=== PATIENT | male | born 2000 | race Caucasian/White ===

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

== ENCOUNTER 2020-01-01 14:49 | Emergency (ER) | payer OTHER, SELFPAY ==
[2020-01-01 15:37] VITALS: BP 118/56; PULSE 63; RESP 16; TEMP 37.2; O2SAT 99; BMI 26.4
--- NOTE | 2020-01-01 15:58 | HMH.EDUTC ---
[facility] [place] Disposition Clinical Impression: Allergic rhinitis Qualifiers: Allergic rhinitis trigger: unspecified Allergic rhinitis seasonality: seasonal Qualified Code(s): J30.2 - Other seasonal allergic rhinitis Disposition: Home, Self-Care Condition on Discharge: Good Instructions: DI for Allergic Rhinitis Additional Instructions: Drink plenty of fluids. Take tylenol or pain or fever. Take the medications as directed. Follow up with your regular doctor. GO TO THE ER FOR ANY WORSENING SYMPTOMS FOLLOW THE DIRECTIONS ON THE COVID-19 HAND OUT THAT WE GAVE YOU REGARDING SELF-ISOLATION UNTIL YOU KNOW YOUR COVID-19 RESULTS Prescriptions: Fluticasone Propionate [Flonase 50mcg nasal spray 16gm] 1 spr NS BID 30 Days #1 bottle Transmission Status: Received by [facility] Cetirizine HCl [Zyrtec] 10 mg PO DAILY 30 Days #30 cap Transmission Status: Re[facility] Referrals: PCP,No [Primary Care Provider] - Forms: Work/School Release Time of Disposition: 16:17 Medical Decision Making - Medical Records Medical records reviewed: No: I reviewed the patient's medical records. - Sander Inquiry Pt receiving controlled substance: No Vital Signs: 01/01/20 15:37 01/01/20 16:32 Temperature 98.9 F 98.9 F Temperature Source Oral Oral Pulse Rate 63 Pulse Rate [Radial] 63 Respiratory Rate 16 16 Blood Pressure 118/56 L Blood Pressure [Right Arm] 118/56 L Blood Pressure Mean [Right Arm] 76 Blood Pressure Source Automatic Cuff Blood Pressure Source [Right Arm] Automatic Cuff Blood Pressure Position Sitting Blood Pressure Position [Right Arm] Sitting 02 Sat by Pulse Oximetry 99 Oxygen Delivery Method Room Air Room Air - Lab Data Lab Results 01/01/20 15:56: Chlamy pneumoniae PCR Not detected, Adenovirus (PCR) Not detected, B. pertussis DNA (PCR) Not detected, Coronavirus OC43 (PCR) Not detected, Coronavirus HKU1 (PCR) Not detected, Coronavirus 229E (PCR) Not detected, SARS-CoV-2 (PCR) Not detected, Coronavirus NL63 (PCR) Not detected, Human Metapneumovir PCR Not detected, Influenza A (H1) PCR Not detected, Influ A (H1N1/09) PCR Not detected, Influenza A (H3) PCR Not detected, Influenza Type A (PCR) Not detected, Influenza Type B (PCR) Not detected, M. pneumoniae (PCR) Not detected, Parainfluenza 1 (PCR) Not detected, Parainfluenza 2 (PCR) Not detected, Parainfluenza 3 (PCR) Not detected, Parainfluenza 4 (PCR) Not detected, RSV (PCR) Not detected, Entero/Rhino (PCR) Detected A [facility] [place] HPI - General Stated complaint: Runny nose Time Seen by Provider: 01/01/20 15:58 Mode of Arrival: Ambulatory Source of Information: Patient Limitations: No Limitations Description of Symptoms (Recalled from Triage Doc. by RN): covid test HEENT Symptoms (Recalled from RN notes): Yes Resp Symptoms (Recalled from RN notes): No Skin Symptoms (Recalled from RN notes): No MS Symptoms (Recalled from RN notes): No Functional Status (Recalled from RN notes): wnl - History of Present Illness Provider Complaint: He states that he has had a runny nose for the past 4 days. 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 - Related Data Home Medications Medication Instructions Recorded Confirmed Albuterol Sulfate [Albuterol HFA 1 - 2 puffs IH Q4-6H PRN 07/15/18 07/15/18 Inhaler] Loratadine [Claritin 10mg 10 mg PO DAILY 07/15/18 07/15/18 Tablet] Previous Rx's Medication Instructions Recorded Ibuprofen [Ibuprofen 600mg 600 mg PO Q6HP PRN #30 tab 07/15/18 Tablet] Cetirizine HCl [Zyrtec] 10 mg PO DAILY 30 Days #30 cap 01/01/20 Fluticasone Propionate [Flonase 1 spr NS BID 30 Days #1 bottle 01/01/20 50mcg nasal spray 16gm] Allergies Allergy/AdvReac Type Severity Reaction Status Date / Time GRAPE FLAVORING Allergy Uncoded 07/15/18 15:41 PURPLE FOOD COLOR Allergy Uncoded 07/15/18 15:41 - Worker's Comp Is thi
[2020-01-01 16:32] VITALS: BP 118/56; PULSE 63; RESP 16; TEMP 37.2; O2SAT 99
[2020-01-02 03:18] LABS: Adenovirus,PCR Not Detected (NotDetected); Bordetella Pertussis Not Detected (NotDetected); Chlamydophila Pneumoniae, PCR Not Detected (NotDetected); Coronavirus 19, PCR Not Detected (NotDetected); Coronavirus 229E Not Detected (NotDetected); Coronavirus NL63 Not Detected (NotDetected); Coronavirus OC43 Not Detected (NotDetected); Coronovirus HKU1,PCR Not Detected (NotDetected); Human Metapneumovirus Not Detected (NotDetected); Influenza A, PCR Not Detected (NotDetected); Influenza AH1, 2009 Not Detected (NotDetected); Influenza AH1, PCR Not Detected (NotDetected); Influenza AH3,PCR Not Detected (NotDetected); Influenza B, PCR Not Detected (NotDetected); Mycoplasma Pneumoniae, PCR Not Detected (NotDetected); Parainfluenza 1, PCR Not Detected (NotDetected); Parainfluenza 2, PCR Not Detected (NotDetected); Parainfluenza 3, PCR Not Detected (NotDetected); Parainfluenza 4, PCR Not Detected (NotDetected); Respiratory Syncytial Virus Not Detected (NotDetected)
[2020-01-02 06:45] LABS: Rhinovirus/Enterovirus Detected (NotDetected)
== END 2020-01-01 16:35 | disposition home or self-care (01) ==
PROVIDERS: Emergency Provider Nurse Practitioner Family
DX: Z20.828 Contact with and (suspected) exposure to other viral communicable diseases (principal); J30.2 Other seasonal allergic rhinitis; F17.210 Nicotine dependence, cigarettes, uncomplicated
CPT/HCPCS: 87581; 87633; 87798; 99201; U0003; U0004

== ENCOUNTER 2020-03-16 13:18 | Emergency (ER) | payer OTHER, SELFPAY ==
[2020-03-16 14:10] VITALS: BP 117/85; PULSE 60; RESP 20; TEMP 37; O2SAT 98; BMI 24.3
--- NOTE | 2020-03-16 14:19 | HMH.EDUTC ---
[facility] [place] Clinical Impression: Exposure to COVID-19 virus Disposition: Home, Self-Care Condition on Discharge: Good Instructions: Preventing the Spread of Coronavirus Discharge Instructions Additional Instructions: Drink plenty of fluids. Take tylenol for pain or fever. Follow up with your regular doctor. GO TO THE ER FOR ANY WORSENING SYMPTOMS Referrals: PCP,No [Primary Care Provider] - Forms: Work/School Release Time of Disposition: 14:36 Medical Decision Making - Medical Records Medical records reviewed: No: I reviewed the patient's medical records. - Sander Inquiry Pt receiving controlled substance: No Vital Signs: 03/16/20 14:10 03/16/20 14:24 Temperature 98.6 F 98.6 F Temperature Source Oral Pulse Rate 60 Pulse Rate [Right Brachial] 60 Respiratory Rate 20 20 Blood Pressure 117/85 Blood Pressure [Right Arm] 117/85 Blood Pressure Mean [Right Arm] 95 Blood Pressure Source [Right Arm] Automatic Cuff Blood Pressure Position [Right Arm] Sitting 02 Sat by Pulse Oximetry 98 Oxygen Delivery Method Room Air Orders (Tests/Meds): ORDERS Category Date Time Status Covid-19 Nasal PCR ([facility]) Routine Lab 03/16/20 14:20 Received [facility] [place] HPI - General Stated complaint: covid exposure Time Seen by Provider: 03/16/20 14:19 - History of Present Illness Provider Complaint: He states that his has covid-19. He denies any symptoms so far. - Related Data Home Medications Medication Instructions Recorded Confirmed Albuterol Sulfate [Albuterol HFA 1 - 2 puffs IH Q4-6H PRN 07/15/18 07/15/18 Inhaler] Loratadine [Claritin 10mg 10 mg PO DAILY 07/15/18 07/15/18 Tablet] Previous Rx's Medication Instructions Recorded Ibuprofen [Ibuprofen 600mg 600 mg PO Q6HP PRN #30 tab 07/15/18 Tablet] Cetirizine HCl [Zyrtec] 10 mg PO DAILY 30 Days #30 cap 01/01/20 Fluticasone Propionate [Flonase 1 spr NS BID 30 Days #1 bottle 01/01/20 50mcg nasal spray 16gm] Allergies Allergy/AdvReac Type Severity Reaction Status Date / Time GRAPE FLAVORING Allergy Uncoded 07/15/18 15:41 PURPLE FOOD COLOR Allergy Uncoded 07/15/18 15:41 [facility] History - Hepatitis A Screen Attestation statement:: This patient has been screened for Hepatitis A risk factors. I have reviewed the patient's past medical history: Yes Medical History: Denies:: Diabetes Mellitus Type 1, Diabetes Mellitus Type 2, MRSA Amputation: No Fractures: Yes (HANDS) - Social History Smoking Status: Current every day smoker Tobacco Type: cigarettes # Packs/Day (cigarettes): 1 Alcohol Intake: never Occupational Status: employed Housing: house ROS Obtained: Yes All systems reviewed & no additional complaints - Constitutional Constitutional: Reports system reviewed and no additional complaints, except as docu - Eyes Eyes: Reports system reviewed and no additional complaints, except as docu - ENT Ears, Nose, Mouth, and Throat: Reports system reviewed and no additional complaints, except as docu - Cardiovascular Cardiovascular: Reports system reviewed and no additional complaints, except as docu - Respiratory Respiratory: Yes system reviewed and no additional complaints, except as docu - Gastrointestinal Gastrointestingal: Reports: system reviewed and no additional complaints, except as docu Physical Exam - General General appearance: alert, in no apparent distress - Head Head exam: atraumatic, normocephalic, normal inspection - Eye Eye exam: Present: normal appearance, PERRL, EOMI - ENT ENT exam: Present: normal exam, normal oropharynx, mucous membranes moist, TM's normal bilaterally, normal external ear exam - Neck Neck exam: Present: normal inspection, full ROM, trachea midline. Absent: meningismus, lymphadenopathy - Chest Chest inspection: Present: normal inspection, symmetric chest wall rise. Absent: tenderness - Respiratory Respiratory exam: Pr
[2020-03-16 14:24] VITALS: BP 117/85; PULSE 60; RESP 20; TEMP 37; O2SAT 98
== END 2020-03-16 14:32 | disposition home or self-care (01) ==
PROVIDERS: Emergency Provider Nurse Practitioner Family
DX: Z20.822 Contact with and (suspected) exposure to COVID-19 (principal); F17.210 Nicotine dependence, cigarettes, uncomplicated
CPT/HCPCS: 99202; G0463; U0003

== ENCOUNTER 2021-06-12 10:35 | Emergency (ER) | payer SELFPAY ==
[2021-06-12 10:36] VITALS: BP 114/65; BP 130/88; BP 131/78; PULSE 52; RESP 18; TEMP 36.9; O2SAT 97; BMI 24.3
--- NOTE | 2021-06-12 13:13 | HMH.EDUTC ---
[facility] [place] [facility] [place] Clinical Impression: Pilonidal cyst Syncopal episodes Qualifiers: Syncope type: unspecified Qualified Code(s): R55 - Syncope and collapse Disposition: Still a Patient Condition on Discharge: Fair Referrals: Provider,Referral, [Primary Care Provider] - Time of Disposition: 14:00 Medical Decision Making - Medical Records Medical records reviewed: No: I reviewed the patient's medical records. - Sander Inquiry Pt receiving controlled substance: No Vital Signs: 06/12/21 10:36 Temperature 98.4 F Temperature Source Oral Pulse Rate [Right Radial] 52 L Respiratory Rate 18 Blood Pressure [Right Arm] 131/78 Blood Pressure [Right Femoral Artery] 114/65 Blood Pressure [Right Radial Artery] 130/88 Blood Pressure Mean [Right Arm] 95 Blood Pressure Mean [Right Femoral Artery] 81 Blood Pressure Mean [Right Radial Artery] 102 Blood Pressure Source [Right Arm] Automatic Cuff Blood Pressure Source [Right Femoral Artery] Automatic Cuff Blood Pressure Source [Right Radial Artery] Automatic Cuff Blood Pressure Position [Right Arm] Sitting Blood Pressure Position [Right Femoral Artery] Supine Blood Pressure Position [Right Radial Artery] Standing 02 Sat by Pulse Oximetry 97 Oxygen Delivery Method Room Air Medical Decision Narrative: he was transferred to the ER due to the history of the syncopal episode and per his family request. [facility] [place] [facility] [place] - General Stated complaint: boil on back, fainted 06/11 Time Seen by Provider: 06/12/21 13:13 - History of Present Illness Provider Complaint: He states that he fainted last night. He is unsure how long he was out. He denies any history of similar episodes. He is worried that he has a brain tumor or a cardiac dysrhythmia. He also has a cyst on his pilnoidal area that has been there for the past 6 months. He states that when he passed out a family member was in the process of cleaning this. - Related Data Home Medications Medication Instructions Recorded Confirmed Albuterol Sulfate [Albuterol HFA 1 - 2 puffs IH Q4-6H PRN 07/15/18 07/15/18 Inhaler] Loratadine [Claritin 10mg 10 mg PO DAILY 07/15/18 07/15/18 Tablet] Previous Rx's Medication Instructions Recorded Ibuprofen [Ibuprofen 600mg 600 mg PO Q6HP PRN #30 tab 07/15/18 Tablet] Cetirizine HCl [Zyrtec] 10 mg PO DAILY 30 Days #30 cap 01/01/20 Fluticasone Propionate [Flonase 1 spr NS BID 30 Days #1 bottle 01/01/20 50mcg nasal spray 16gm] Allergies Allergy/AdvReac Type Severity Reaction Status Date / Time GRAPE FLAVORING Allergy Mild Uncoded 06/12/21 13:29 PURPLE FOOD COLOR Allergy Uncoded 07/15/18 15:41 [facility] History - Hepatitis A Screen Attestation statement:: This patient has been screened for Hepatitis A risk factors. I have reviewed the patient's past medical history: Yes Medical History: Denies:: Diabetes Mellitus Type 1, Diabetes Mellitus Type 2, MRSA Amputation: No Fractures: Yes (HANDS) - Social History Smoking Status: Current every day smoker Tobacco Type: cigarettes # Packs/Day (cigarettes): 1 Alcohol Intake: never Occupational Status: other Housing: house ROS Obtained: Yes All systems reviewed & no additional complaints - Constitutional Constitutional: Denies chills, Denies fever(s) - Eyes Eyes: Denies eye discharge - ENT Ears, Nose, Mouth, and Throat: Denies dizziness, Denies otalgia, Denies sore throat - Cardiovascular Cardiovascular: Denies chest pain - Respiratory Respiratory: Denies chest congestion, Denies cough - Gastrointestinal Gastrointestingal: Denies: abdominal pain, diarrhea, nausea, vomiting - Musculoskeletal Musculoskeletal: Denies joint pain - Integumentary/Breasts Skin/Breast: Reports as per HPI - Neurologic Neurologic: Reports syncope Physical Exam - General General appearance: alert, in no apparent distress - Head Head exam: atraumatic, normocephalic, normal inspection - Eye Eye ex
[2021-06-12 13:36] VITALS: BP 134/84; PULSE 51; RESP 18; TEMP 36.6; O2SAT 96; BMI 24.3
--- NOTE | 2021-06-12 14:04 | ECG_ITS ---
APPROVED REPORT Exam: Resting ECG HR:44 bpm ECG Measurements Heart Rate 44 AXES ND 158 P 63 QRSd 98 QRS 81 QT 419 T 60 QTc 370 Conclusion SINUS BRADYCARDIA BORDERLINE ECG UNCONFIRMED REPORT Electronically signed by : Lalo Worrell MD 06/14/2021 08:17:21
--- NOTE | 2021-06-12 14:11 | PC.NURSE ---
ED MD at
[2021-06-12 15:10] LABS: Basophils % 0.6 % (0.1-2.0); Eosinophils # 0.1 K/mm3 (0.0-0.4); Eosinophils % 0.9 % (0.1-12.0); Hematocrit 47.3 % (42.0-52.0); Hemoglobin 15.4 g/dL (14.1-18.0); Lymphocytes # 1.9 K/mm3 (0.7-4.5); Lymphocytes % 25.8 % (10-50); Mean Corpuscular HGB Conc 32.6 g/dL (31.8-35.4); Mean Corpuscular Hemoglobin 29.3 pg (27.0-31.2); Mean Corpuscular Volume 89.8 fl (80-94); Mean Platelet Volume 8.5 fl (7.4-10.4); Monocytes # 0.4 K/mm3 (0.1-1.0); Monocytes % 6.2 % (1.7-9.3); Neutrophils # 4.8 K/mm3 (1.8-7.8); Neutrophils % 66.6 % (37.0-80.0); Platelet Count 204 K/mm3 (142-424); Red Blood Count 5.27 M/mm3 (4.60-6.20); Red Cell Distribution Width 13.2 % (11.5-17.5); White Blood Count 7.2 K/mm3 (4.8-10.8)
[2021-06-12 15:11] LABS: Chloride 107 mmol/L (98-107); Potassium 3.7 mmoL/L (3.5-5.1); Sodium 140 mmol/L (136-145)
[2021-06-12 15:14] LABS: Alanine Aminotransferase 15 U/L (12-78); Albumin Level 4.4 g/dl (3.5-5.0); Albumin/Globulin Ratio 1.8 (1.1-1.8); Alkaline Phosphatase 61 U/L (38-126); Anion Gap 11.7 mEq/L (5-15); Aspartate Amino Transferase 23 U/L (17-59); Bilirubin,Total 0.9 mg/dl (0.2-1.3); Blood Urea Nitrogen 16 mg/dl (9-20); Calcium 8.4 mg/dl (8.4-10.2); Carbon Dioxide 25 mmol/L (22.0-30.0); Creatinine Clearance Estimated 159 mL/min (50-200); Estimated Glomerular Filt Rate 122 ml/min (>60); GFR (African American) 148 ML/MIN (>60); Globulin 2.5 g/dL (1.3-3.2); Glucose 93 mg/dl (74-100); Total Protein,Serum 6.9 g/dl (6.3-8.2)
[2021-06-12 15:41] VITALS: BP 122/83; BP 141/84; BP 147/88; PULSE 46; PULSE 55; PULSE 65
--- NOTE | 2021-06-12 15:49 | HMH.EDSYNC ---
ED Disposition Clinical Impression: Pilonidal cyst Syncopal episodes Qualifiers: Syncope type: unspecified Qualified Code(s): R55 - Syncope and collapse Disposition: Still a Patient Condition on Discharge: Good Referrals: Provider,Referral, [Primary Care Provider] - - Critical Care Critical Care Time: No Attestation: On 06/12/21, the high probability of a clinically significant, sudden or life threatening deterioration of the following system(s) required my full and direct attention, intervention and personal management. The time I documented below is in addition to time spent performing reported procedures but includes the following listed in this critical care notation. Medical Decision Making - Medical Records Medical records reviewed: Yes: I reviewed the patient's medical records. - Sander Inquiry Pt receiving controlled substance: No Vital Signs: 06/12/21 10:36 06/12/21 15:41 Temperature 98.4 F Temperature Source Oral Pulse Rate [Orthostatic Lying Right Radial] 55 L Pulse Rate [Orthostatic Sitting Right Radial] 46 L Pulse Rate [Orthostatic Standing Right Radial] 65 Pulse Rate [Right Radial] 52 L Respiratory Rate 18 Blood Pressure [Orthostatic Lying Right Arm] 122/83 Blood Pressure [Orthostatic Sitting Right Arm] 141/84 H Blood Pressure [Orthostatic Standing Right Arm] 147/88 H Blood Pressure [Right Arm] 131/78 Blood Pressure [Right Femoral Artery] 114/65 Blood Pressure [Right Radial Artery] 130/88 Blood Pressure Mean [Right Arm] 95 Blood Pressure Mean [Right Femoral Artery] 81 Blood Pressure Mean [Right Radial Artery] 102 Blood Pressure Source [Right Arm] Automatic Cuff Blood Pressure Source [Right Femoral Artery] Automatic Cuff Blood Pressure Source [Right Radial Artery] Automatic Cuff Blood Pressure Position [Right Arm] Sitting Blood Pressure Position [Right Femoral Artery] Supine Blood Pressure Position [Right Radial Artery] Standing 02 Sat by Pulse Oximetry 97 Oxygen Delivery Method Room Air - Lab Data Lab Results 06/12/21 14:30: WBC 7.2, RBC 5.27, Hgb 15.4, Hct 47.3, MCV 89.8, MCH 29.3, MCHC 32.6, RDW 13.2, Plt Count 204, MPV 8.5, Neut % (Auto) 66.6, Lymph % (Auto) 25.8, Nye % (Auto) 6.2, Eos % (Auto) 0.9, Baso % (Auto) 0.6, Neut # (Auto) 4.8, Lymph # (Auto) 1.9, Nye # (Auto) 0.4, Eos # (Auto) 0.1, Baso # (Auto) 0.0 06/12/21 14:30: Sodium 140, Potassium 3.7, Chloride 107, Carbon Dioxide 25, Anion Gap 11.7, BUN 16, Creatinine 0.80, Estimated Creat Clear 159, Estimated GFR 122, Est GFR ( Amer) 148, Glucose 93, Calcium 8.4, Total Bilirubin 0.9, AST 23, ALT 15, Alkaline Phosphatase 61, Total Protein 6.9, Albumin 4.4, Globulin 2.5, Albumin/Globulin Ratio 1.8 Result diagrams: 06/12/21 14:30 06/12/21 14:30 Medical Decision Narrative: ekg by me sinus gema 44, qrs narrow, no st elev orthostatic vitals nml, asymptomatic Syncope HPI - General Stated Complaint: boil on back, fainted 06/11 Time Seen by Provider: 06/12/21 14:00 Mode of Arrival: Ambulatory Source of Information: Patient Limitations: No Limitations Description of Symptoms (Recalled from ER Triage Doc. by RN): Pt stated that last night he past out for 5 minutes. Pt states that he has a cyst on back and it has popped. While cleaning it he passed out and hit head on person cleaning cyst's knee when he passed out and was shaking. - History of Present Illness HPI narrative: brief syncope yesterday, resolved, no preceeeding symptoms, no head ijury today feels fine complaint: loss of consciousness Onset (ago): minute(s) Prodromal symptoms: none Witnessed: yes - by bystander Injuries sustained associated with event: none Current symptoms: none Treatments prior to arrival: none - Related Data Home Medications Medication Instructions Recorded Confirmed Albuterol Sulfate [Albuterol HFA 1 - 2 puffs IH Q4-6H PRN 07/15/18 07/15/18 Inhaler] Loratadine [Claritin 10mg 10 m
[2021-06-12 16:01] VITALS: BP 147/88; PULSE 58; RESP 16; TEMP 36.6; O2SAT 96
== END 2021-06-12 16:02 | disposition home or self-care (01) ==
LOC: UTC 14:00 → ER 14:02
PROVIDERS: Emergency Provider Emergency Medicine
DX: R55 Syncope and collapse (principal); L05.91 Pilonidal cyst without abscess; F17.210 Nicotine dependence, cigarettes, uncomplicated
CPT/HCPCS: 80053; 85025; 93005; 99283

== ENCOUNTER → 2022-05-13 14:25 | Outpatient (CLI) | payer OTHER, SELFPAY ==
[2022-05-13 15:27] LABS: Basophils # 0.1 K/mm3 (0-0.2); Basophils % 1.2 % (0.1-2.0); Eosinophils # 0.1 K/mm3 (0.0-0.4); Eosinophils % 2.2 % (0.1-12.0); Hematocrit 51.6 % (42.0-52.0); Hemoglobin 16.3 g/dL (14.1-18.0); Lymphocytes # 2.2 K/mm3 (0.7-4.5); Lymphocytes % 36.7 % (10-50); Mean Corpuscular HGB Conc 31.5 g/dL (31.8-35.4); Mean Corpuscular Hemoglobin 28.5 pg (27.0-31.2); Mean Corpuscular Volume 90.2 fl (80-94); Mean Platelet Volume 8.2 fl (7.4-10.4); Monocytes # 0.4 K/mm3 (0.1-1.0); Monocytes % 6.2 % (1.7-9.3); Neutrophils # 3.2 K/mm3 (1.8-7.8); Neutrophils % 53.7 % (37.0-80.0); Platelet Count 258 K/mm3 (142-424); Red Blood Count 5.72 M/mm3 (4.60-6.20); Red Cell Distribution Width 13.3 % (11.5-17.5); White Blood Count 5.9 K/mm3 (4.8-10.8)
[2022-05-13 16:52] LABS: Anion Gap 11.4 mEq/L (5-15); Blood Urea Nitrogen 14 mg/dl (9-20); Calcium 9.2 mg/dl (8.4-10.2); Carbon Dioxide 30 mmol/L (22.0-30.0); Chloride 101 mmol/L (98-107); Estimated Glomerular Filt Rate 121 ml/min (>60); GFR (African American) 146 ML/MIN (>60); Glucose 108 mg/dl (74-100); Potassium 4.4 mmoL/L (3.5-5.1); Sodium 138 mmol/L (136-145)
== END ==
PROVIDERS: PCP Internal Medicine Adolescent Medicine; Visit Provider Surgery
DX: L05.91 Pilonidal cyst without abscess (principal)
CPT/HCPCS: 36415; 80048; 85025

== ENCOUNTER 2022-05-18 09:32 | Day surgery (SDC) | payer OTHER, SELFPAY ==
[2022-05-18] VITALS (10 sets, daily range): BP systolic 105–154; BP diastolic 51–90; PULSE 72–89; RESP 12–20; TEMP 36.2–43; O2SAT 93–99; BMI 25.1
--- NOTE | 2022-05-18 10:56 | P.PN_ITS ---
[facility] Disclaimer: The information contained in this section may have been updated after the patient was seen, as this information can be updated by other users. Medical History Allergies Asthma Bradycardia Bronchitis Depression with anxiety Fainting episodes Heart murmur History of gastroesophageal reflux (GERD) Insomnia Migraine Surgical History No significant past surgical history Family History Mother Colon cancer Simon syndrome Father Hyperlipidemia Pre-diabetes Hypertension Other Cancer Social History Smoking Status: Current every day smoker tobacco type: cigarettes packs per day: 1 years smoked: 6 second hand exposure: Yes alcohol intake: never substance use type: marijuana current occupational status: unemployed Travel in the last 8 weeks: None household members: spouse housing: apartment current occupational exposures/hazards: No caffeine: Yes [facility] Anesthesia Checklist Patient Identification Patient Identification: Arm Band and Verbal (Name & ) Structural Data Admitted From: Home Planned Operative Procedure/s: Pilonidal cyst excision Consent for Planned Operative Procedure(s) Verified: Yes NPO Status Verified Time NPO: 00:00 Additional verifications Anesthesia Reactions: No Hx Blood Transfusions: No Blood Transfusion Reaction: No Airway Assessment C-Spine Mobility Assessed: Yes TMJ Mobility Assessed: Yes Dentition: Poor Dentition Neurological Assessment Level of Consciousness: Awake Hx Seizures: No Numbness or tingling in extremities: No Anesthesia Plan Anesthesia Risk discussed: Yes Anesthesia Plan: Verified ASA Class: II Anesthesia Type: General
--- NOTE | 2022-05-18 11:55 | EXP.OP.NOTE ---
Date of procedure: 05/18/22 Pre-op Diagnosis:: Pilonidal cyst Post-op Diagnosis:: Same Procedure performed:: Excision of pilonidal cyst with debridement Surgeon:: Feng Yusuf MD SENIOR TRAINING [employer] DEVELOPMENT REP:: Korey Briceno Anesthesia: GETGricelda Estimated blood loss (mL): 25 Clinical Note:: Patient presents for excision and debridement of pilonidal cyst. He is a 22-year-old male originally referred by Jade Larry for pilonidal cyst and seen in the office 10/09/21.? He states that he had noticed this as an issue in January 2021.? However, it was relatively asymptomatic until May of 2021.? At that time he had some spontaneous drainage.? He states that when this occurred he had passed out for 5 minutes and was seen in the emergency department at this facility.? He has had some additional episodes.? Has occasionally spontaneously drained some bloody fluid.? He has never had any intervention performed on the area. At that time I explained to the patient that there is no definitive surgical cure for this condition.? Given the inflammation with intermittent drainage I did feel that surgical intervention may be necessary and indicated.?? I felt that it may be reasonable to proceed with excision and debridement of this inflamed tissue in the operating room with inspection of underlying tissues.? He may actually have a communicating tract requiring more extensive opening and debridement of tissues and initiation of dressing changes.? Patient was scheduled for surgery but had to cancel.? He recently presented to the office with ongoing problems.? He states that he has some drainage and has been keeping a dressing in place.? He states that he has passed out from the pain. Patient was found to have an area of scar tissue and granulation tissue with some minimal purulent drainage in the post coccygeal area. He had some pilonidal sinus openings several inches inferiorly. Operative findings:: There was some minimal purulent granulation tissue at the site where he had spontaneous drainage. However, there was tract of purulent granulation tissue and debris down to the area of the pilonidal openings. Overall length of the disease process was 9 cm. Operative note:: Patient was taken the operating room. General anesthesia was induced. He was positioned in prone position. The small area of scar tissue and minimal granulation tissue was excised in a limited fashion. There is some underlying granulation tissue which was excised with electrocautery. Initially was felt that the wound was rather minimal which seemed unlikely given the pilonidal sinus tract openings several inches inferiorly. Palpation of the skin between the 2 areas was then performed and there was purulent drainage coming from inferiorly. Probe was then inserted and there was clearly defined inflamed granulation tract. This was slowly unroofed exposing purulent granulation tissue and debris consistent with pilonidal cyst. Once the inflamed tissue of the pilonidal cyst was fully unroofed debridement was carried out using a small curette. Hemostasis was achieved with electrocautery. Wound was irrigated. Local anesthetic was infiltrated. Wound was packed with dry dressing and covered with clean dry sterile dressing. Overall length of the wound was approximately 9 cm x 1 cm in width. Condition: stable Disposition: PACU Complications:: None immediately apparent
--- NOTE | 2022-05-18 12:03 | EXP.ANES.I ---
[facility] Anesthesia Record Part I Anesthesia Record I Intake, IV Amount: 900 Estimated blood loss (mL): 5 Urine output (mL): 0 Blood Pressure: 145/86 SaO2: 93 Pulse Rate: 84 Respiratory Rate: 20 Temperature: 97.1 F Patient is:: Drowsy and Oral/Nasal airway Stable to PACU at:: 12:01
--- NOTE | 2022-05-22 16:13 | P.PNANES_ITS ---
[facility] Anesthesia Record Part II Anesthesia Record Part II Discharge Time: 12:31 Destination: Surgical Day Care (OP Surgery) PACU nurse assessment reviewed?: Yes Patient Condition:: Good Anesthesia Complications:: None Swallowing reflex intact?: Yes Cyanosis?: No Blood Pressure: 144/64 Pulse Rate: 85 Temperature: 98.1 F Mental Status: Alert & Oriented Pain level:: 0 Nausea and/or vomitting:: None Intake, IV Amount: 0
[2022-05-22 16:14] VITALS: BP 144/64; PULSE 85; TEMP 36.7
== END 2022-05-18 13:10 | disposition home or self-care (01) ==
PROVIDERS: PCP Internal Medicine Adolescent Medicine; Visit Provider Surgery
PROC: (CPT 11771; principal; 2022-05-18 11:00)
DX: L05.01 Pilonidal cyst with abscess (principal); F17.210 Nicotine dependence, cigarettes, uncomplicated
CPT/HCPCS: 11771; 96374

== ENCOUNTER 2022-05-19 10:40 | Outpatient (CLI) | payer OTHER, SELFPAY | END 2022-05-19 11:05 | disposition home or self-care (01) | LOC: INF 10:41 | PROVIDERS: PCP Internal Medicine Adolescent Medicine; Visit Provider Surgery | DX: Z48.01 Encounter for change or removal of surgical wound dressing (principal); L05.01 Pilonidal cyst with abscess | CPT/HCPCS: G0463 ==

== ENCOUNTER 2022-05-21 14:03 | Outpatient (CLI) | payer OTHER, SELFPAY | END 2022-05-21 14:10 | disposition home or self-care (01) | PROVIDERS: PCP Internal Medicine Adolescent Medicine; Visit Provider Surgery | DX: Z48.01 Encounter for change or removal of surgical wound dressing (principal); L05.01 Pilonidal cyst with abscess | CPT/HCPCS: G0463 ==

== ENCOUNTER 2022-05-22 14:05 | Outpatient (CLI) | payer OTHER, SELFPAY | END 2022-05-22 14:20 | disposition home or self-care (01) | LOC: INF 14:05 | PROVIDERS: PCP Internal Medicine Adolescent Medicine; Visit Provider Surgery | DX: Z48.01 Encounter for change or removal of surgical wound dressing (principal); L05.01 Pilonidal cyst with abscess | CPT/HCPCS: G0463 ==

== ENCOUNTER 2022-05-24 14:53 | Outpatient (CLI) | payer OTHER, SELFPAY ==
[2022-05-24 14:55] VITALS: BP 136/68; PULSE 69; RESP 18; O2SAT 95
[2022-05-24 15:03] VITALS: BP 141/96; PULSE 68; RESP 18; O2SAT 98
== END 2022-05-24 15:03 | disposition home or self-care (01) ==
LOC: INF 14:53
PROVIDERS: PCP Internal Medicine Adolescent Medicine; Visit Provider Surgery
DX: Z48.01 Encounter for change or removal of surgical wound dressing (principal); L05.01 Pilonidal cyst with abscess
CPT/HCPCS: G0463

== ENCOUNTER 2022-05-26 13:56 | Outpatient (CLI) | payer OTHER, SELFPAY | END 2022-05-26 14:46 | disposition home or self-care (01) | LOC: INF 13:56 | PROVIDERS: PCP Internal Medicine Adolescent Medicine; Visit Provider Surgery | DX: Z48.01 Encounter for change or removal of surgical wound dressing (principal); L05.01 Pilonidal cyst with abscess | CPT/HCPCS: G0463 ==

== ENCOUNTER 2022-05-29 14:43 | Outpatient (CLI) | payer OTHER, SELFPAY | END 2022-05-29 15:05 | disposition home or self-care (01) | LOC: INF 14:43 | PROVIDERS: PCP Internal Medicine Adolescent Medicine; Visit Provider Surgery | DX: Z48.01 Encounter for change or removal of surgical wound dressing (principal); L05.01 Pilonidal cyst with abscess | CPT/HCPCS: G0463 ==

== ENCOUNTER → 2022-05-30 13:51 | Outpatient (CLI) | payer OTHER, SELFPAY | PROVIDERS: PCP Internal Medicine Adolescent Medicine; Visit Provider Surgery | DX: Z48.01 Encounter for change or removal of surgical wound dressing (principal); L05.01 Pilonidal cyst with abscess | CPT/HCPCS: G0463 ==

== ENCOUNTER → 2022-05-31 15:13 | Outpatient (CLI) | payer OTHER, SELFPAY | PROVIDERS: PCP Internal Medicine Adolescent Medicine; Visit Provider Surgery | DX: Z48.01 Encounter for change or removal of surgical wound dressing (principal); L05.01 Pilonidal cyst with abscess | CPT/HCPCS: G0463 ==

== ENCOUNTER 2022-06-01 13:03 | Outpatient (CLI) | payer OTHER, SELFPAY | END 2022-06-01 13:38 | disposition home or self-care (01) | LOC: INF 13:03 | PROVIDERS: PCP Internal Medicine Adolescent Medicine; Visit Provider Surgery | DX: Z48.01 Encounter for change or removal of surgical wound dressing (principal); L05.01 Pilonidal cyst with abscess | CPT/HCPCS: G0463 ==

== ENCOUNTER 2022-06-02 14:51 | Outpatient (CLI) | payer OTHER, SELFPAY | END 2022-06-02 15:15 | disposition home or self-care (01) | LOC: INF 14:51 | PROVIDERS: PCP Internal Medicine Adolescent Medicine; Visit Provider Surgery | DX: Z48.01 Encounter for change or removal of surgical wound dressing (principal); L05.01 Pilonidal cyst with abscess | CPT/HCPCS: G0463 ==

== ENCOUNTER 2022-06-03 14:34 | Outpatient (CLI) | payer OTHER, SELFPAY | END 2022-06-03 15:07 | disposition home or self-care (01) | LOC: INF 14:35 | PROVIDERS: PCP Internal Medicine Adolescent Medicine; Visit Provider Surgery | DX: Z48.01 Encounter for change or removal of surgical wound dressing (principal); L05.01 Pilonidal cyst with abscess | CPT/HCPCS: G0463 ==

== ENCOUNTER 2022-06-04 15:51 | Outpatient (CLI) | payer OTHER, SELFPAY | END 2022-06-04 16:00 | disposition home or self-care (01) | LOC: INF 15:52 | PROVIDERS: PCP Internal Medicine Adolescent Medicine; Visit Provider Surgery | DX: Z48.01 Encounter for change or removal of surgical wound dressing (principal); L05.01 Pilonidal cyst with abscess | CPT/HCPCS: G0463 ==

== ENCOUNTER 2022-06-07 16:41 | Outpatient (CLI) | payer OTHER, SELFPAY | END 2022-06-07 17:05 | disposition home or self-care (01) | LOC: INF 16:43 | PROVIDERS: PCP Internal Medicine Adolescent Medicine; Visit Provider Surgery | DX: Z48.01 Encounter for change or removal of surgical wound dressing (principal); L05.01 Pilonidal cyst with abscess | CPT/HCPCS: G0463 ==

== ENCOUNTER 2022-06-08 15:14 | Outpatient (CLI) | payer OTHER, SELFPAY | END 2022-06-08 15:30 | disposition home or self-care (01) | LOC: INF 15:14 | PROVIDERS: PCP Internal Medicine Adolescent Medicine; Visit Provider Surgery | DX: Z48.01 Encounter for change or removal of surgical wound dressing (principal); L05.01 Pilonidal cyst with abscess | CPT/HCPCS: G0463 ==

== ENCOUNTER → 2022-06-13 15:52 | Outpatient (CLI) | payer SELFPAY | PROVIDERS: PCP Internal Medicine Adolescent Medicine; Visit Provider Surgery | DX: Z48.01 Encounter for change or removal of surgical wound dressing (principal); L05.01 Pilonidal cyst with abscess | CPT/HCPCS: G0463 ==

== ENCOUNTER 2022-06-20 17:26 | Outpatient (CLI) | payer SELFPAY | END 2022-06-20 18:00 | disposition home or self-care (01) | LOC: INF 17:28 | PROVIDERS: PCP Internal Medicine Adolescent Medicine; Visit Provider Surgery | DX: Z48.01 Encounter for change or removal of surgical wound dressing (principal); L05.01 Pilonidal cyst with abscess | CPT/HCPCS: G0463 ==

== ENCOUNTER 2023-02-04 05:52 | Emergency (ER) | payer OTHER, SELFPAY ==
[2023-02-04 05:53] VITALS: BP 141/93; PULSE 72; RESP 19; TEMP 36.4; O2SAT 96; BMI 29.2
--- NOTE | 2023-02-04 06:26 | HMH.EDGENADL ---
Discharge Plan Disposition Patient Disposition: Home, Self-Care Prescriptions Prescriptions: New prednisone 20 mg tablet 40 mg PO BID 5 Days Qty: 20 0RF Referrals Follow up/Referrals: Lalo Worrell MD [Primary Care Provider] - See instructions Activity Restrictions/Add. Instructions Additional Instructions/Restrictions: Contact Dr. Abhishek Cleary at [facility] and [facility] for follow-up appointment [address] [facility] [address] [place] [id number] Call your family doctor to establish care for this visit to the emergency department and schedule follow-up within 48 hours to ensure improvement. If you have any worsening of your condition or any other concerning signs or symptoms, including swelling of your face or throat, difficulty breathing, lightheadedness return to the emergency department or your primary care doctor for further evaluation. Clinical Impressions Clinical Impression: Allergic dermatitis, Urticaria Instructions Patient Instructions: DI for Skin Abscess Discharge ED Provider: Manuel Jacobo General Adult [facility] General Chief complaint: Skin/Abscess/Foreign Body Stated complaint: rash, possible allergic reaction Time Seen by Provider: 02/04/23 05:58 Mode of Arrival: Ambulatory Source of Information: Patient Limitations: No Limitations Description of Symptoms (Recalled from ER Triage Doc. by RN): Patient reports intermittent all over body rash, hives, and itching that have been ongoing for a month. Had been seen by family provider that gave steriods that helped for about 2 weeks then the rash began to return. Patient denies any changes in soaps or detergents, no new changes in the home or work. History of Present Illness HPI narrative: 22-year-old male with severe allergies, history of pilonidal cyst, recent diagnosis of rash, started on a couple days of a steroid presenting with rash. Patient states that he gets an incredibly itchy rash every day after sleeping. States that its mostly on his trunk, chest, upper arms. No difficulty breathing, nausea or vomiting, lightheadedness, swelling of his face or tongue. Denies Detergents, recent pool, bathtub, sun exposure, new soaps, or any other changes in that regard. Patient has not brought any new clothing. He states he has a history of breaking out after standing places where people use nonhypoallergenic detergents. After speaking to triage nurse, patient states that he just thought about the fact that he stayed with his grandmother due to financial hardship and was there for about a month, stopped living with her about a month ago. Rash started around a month ago. Has not gotten any worse with any of his new medications Including famotidine, cetirizine, clindamycin and ibuprofen for tooth pain. Related Data Previous Rx's Medication Instructions Recorded prednisone 20 mg tablet 40 mg PO BID 5 days #20 tabs 02/04/23 Allergies Allergy/AdvReac Type Severity Reaction Status Date / Time GRAPE FLAVORING Allergy Mild Uncoded 06/25/22 13:52 PURPLE FOOD COLOR Allergy Uncoded 06/25/22 13:52 [facility] Disclaimer: The information contained in this section may have been updated after the patient was seen, as this information can be updated by other users. Medical History Allergies Asthma Bradycardia Bronchitis Depression with anxiety Fainting episodes Heart murmur History of gastroesophageal reflux (GERD) Insomnia Migraine Surgical History History of excision of pilonidal cyst No significant past surgical history Family History Mother Colon cancer Simon syndrome Father Hyperlipidemia Pre-diabetes Hypertension Other Cancer Social History Smoking Status: Current reji
[2023-02-04 06:36] VITALS: BP 141/93; PULSE 72; RESP 19; TEMP 36.4; O2SAT 96
== END 2023-02-04 06:43 | disposition home or self-care (01) ==
PROVIDERS: Emergency Provider Emergency Medicine; PCP Internal Medicine Adolescent Medicine
DX: F17.210 Nicotine dependence, cigarettes, uncomplicated (principal); R21 Rash and other nonspecific skin eruption
CPT/HCPCS: 99283

== ENCOUNTER 2024-02-08 18:35 | Emergency (ER) | payer OTHER, SELFPAY ==
[2024-02-08 18:36] VITALS: BP 155/87; PULSE 71; RESP 17; TEMP 37; O2SAT 99; BMI 30.7
--- NOTE | 2024-02-08 19:14 | ED_ITS ---
Discharge Plan Disposition Patient Disposition: Home, Self-Care Condition: Good Prescriptions Prescriptions: New amoxicillin-pot clavulanate 875-125 mg tablet 1 tab PO BID Qty: 20 0RF No Action prednisone 20 mg tablet 40 mg PO BID 5 Days Qty: 20 0RF Referrals Follow up/Referrals: Lalo Worrell MD [Primary Care Provider] - See instructions Activity Restrictions/Add. Instructions Additional Instructions/Restrictions: As we discussed please follow-up as soon as possible with dentistry to have your problematic tooth pulled. Return to the ER for any worsening swelling pain drainage. I have called in a prescription. Please make sure you take it till it is all gone. Clinical Impressions Clinical Impression: Dentalgia, Dental caries Print Language Print Language: Macanese Discharge ED Provider: Antoni Leger General Adult HPI <YULISSA Patel - Last Filed: 02/08/24 20:48> General Chief complaint: Dental/Oral Stated complaint: tooth pain Time Seen by Provider: 02/08/24 19:14 History of Present Illness HPI narrative: Patient presents for evaluation of dentalgia. Patient has longstanding dental caries and for over a year has had right upper molar pain intermittently. Patient states over the last month he has had increasing pain in the right upper molar but has been unable to find a dentist. He is concerned that he has an abscess however he has no facial swelling no numbness no tingling no drainage. He denies fever chills hemoptysis hematochezia melena nausea vomiting or diarrhea. Related Data Previous Rx's ?Medication ?Instructions ?Recorded prednisone 20 mg tablet 40 mg (2 x 20 mg) PO BID 5 days 02/04/23 #20 tabs amoxicillin 875 mg-potassium 1 tab PO BID #20 tabs 02/08/24 clavulanate 125 mg tablet Allergies Allergy/AdvReac Type Severity Reaction Status Date / Time GRAPE FLAVORING Allergy Mild Uncoded 06/25/22 13:52 PURPLE FOOD COLOR Allergy Uncoded 06/25/22 13:52 PFSH <YULISSA Patel - Last Filed: 02/08/24 20:48> [facility] Disclaimer: The information contained in this section may have been updated after the hesham nt was seen, as this information can be updated by other users. Medical History Allergies Asthma Bradycardia Bronchitis Depression with anxiety Fainting episodes Heart murmur History of gastroesophageal reflux (GERD) Insomnia Migraine Surgical History History of excision of pilonidal cyst No significant past surgical history Family History Mother Colon cancer Simon syndrome Father Hyperlipidemia Pre-diabetes Hypertension Other Cancer Social History Smoking Status: Current every day smoker tobacco type: cigarettes packs per day: 1 years smoked: 6 second hand exposure: Yes alcohol intake: never substance use type: marijuana current occupational status: unemployed household members: spouse housing: apartment current occupational exposures/hazards: No caffeine: Yes Other Medical History Have you received the Flu Vaccine for this season: No Have you received the Pneumonia Vaccine: No <YULISSA Patel - Last Filed: 02/08/24 20:48> ROS Obtained: Yes Systems reviewed as appropriate & no additional complaints except as documented Physical Exam <YULISSA Patel - Last Filed: 02/08/24 20:48> General General appearance: alert and in no apparent distress Respiratory Respiratory exam: Present normal lung sounds bilaterally Cardiovascular Cardiovascular exam: Present regular rate Neurological Exam Neurological exam: Present alert and oriented X3 Medical Decision Making <YULISSA Patel - Last Filed: 02/08/24 20:48> Medical Records Screening: Per USPSTF and CDC recommendations, given the prevalence of disease in our region, it is our hospital?s policy to screen for HIV and viral Hepatitis for all patients aged 18 and over and those with ongoing risk factors. Sander Inquiry Pt receiving controlled substance: No Vital Signs: 02/08/24 18:36 02/08/24 19:37 Temperature 98.6 F 98.6 F Temperature Source Oral Oral Pulse Rate 72 Pulse Rate [Left] 71 Respiratory Rate 17 20 Blood Pressure 146/97 H Blood Pressure [Left Arm] 155/87 H Blood Pressure Mean [Left Arm] 109 Blood Pressure Source Automatic Cuff Blood Pressure Source [Left Arm] Automatic Cuff Blood Pressure Position Sitting Blood Pressure Position [Left Arm] Sitting 02 Sat by Pulse Oximetry 99 Oxygen Delivery Method Room Air Room Air Orders (Tests/Meds): ED MEDICATIONS Discontinued Medications Generic Name Dose Route Start Last Admin Trade Name Stevenson PRN Reason Stop Dose Admin Acetaminophen 1,000 mg 02/08/24 19:20 02/08/24 19:28 Acetaminophen 500mg Tab PO 02/08/24 19:21 1,000 mg ONCE ONE Administration Amoxicillin/Clavulanate Potassium 1 each 02/08/24 19:30 02/08/24 19:32 Amoxicillin/Clavulanate Potassium 875/125mg Tablet PO 02/08/24 19:31 1 each ONCE ONE Administration Benzocaine/Butamben/Tetracaine HCl 1 gm 02/08/24 19:20 02/08/24 19:28 Tetracaine/Benzocaine/Butamben 56 Gm [facility] TP 02/08/24 19:21 1 gm ONCE ONE Administration Ibuprofen 800 mg 02/08/24 19:20 02/08/24 19:28 Ibuprofen 800 Mg Tablet PO 02/08/24 19:21 800 mg ONCE ONE Administration Lidocaine HCl 15 ml 02/08/24 19:20 02/08/24 19:28 Lidocaine 2% Viscous Jyothi 15ml Udc PO 02/08/24 19:21 15 ml ONCE ONE Administration Medical Decision Narrative: In summary patient is a 43-year-old male who presents to the emergency department for evaluation of dentalgia. Patient is hemodynamically stable upon arrival, afebrile. Physical exam is remarkable for dental caries, patient has an eroded upper right second to last molar but there is no gingival swelling the buccal recess reveals no palpable masses or fluctuance no evidence of right periorbital cellulitis or facial swelling although the area is tender to palpation. He has no lymphadenopathy. Differential diagnosis includes dentalgia versus possible early infection. Initial workup was considered including labs and imaging however patient has no red flags indicating that he has a deep space abscess thus are deferred. Initial interventions include dental balls and first dose of Augmentin. Given this patient is appropriate for discharge with recommendation is that he find a dentist to soon as possible with a prescription for Augmentin sent to his pharmacy and strict return precautions. <Antoni Leger MD - Last Filed: 02/08/24 21:44> Vital Signs: 02/08/24 18:36 02/08/24 19:37 Temperature 98.6 F 98.6 F Temperature Source Oral Oral Pulse Rate 72 Pulse Rate [Left] 71 Respiratory Rate 17 20 Blood Pressure 146/97 H Blood Pressure [Left Arm] 155/87 H Blood Pressure Mean [Left Arm] 109 Blood Pressure Source Automatic Cuff Blood Pressure Source [Left Arm] Automatic Cuff Blood Pressure Position Sitting Blood Pressure Position [Left Arm] Sitting 02 Sat by Pulse Oximetry 99 Oxygen Delivery Method Room Air Room Air Orders (Tests/Meds): ED MEDICATIONS Discontinued Medications Generic Name Dose Route Start Last Admin Trade Name Stevenson PRN Reason Stop Dose Admin Acetaminophen 1,000 mg 02/08/24 19:20 02/08/24 19:28 Acetaminophen 500mg Tab PO 02/08/24 19:21 1,000 mg ONCE ONE Administration Amoxicillin/Clavulanate Potassium 1 each 02/08/24 19:30 02/08/24 19:32 Amoxicillin/Clavulanate Potassium 875/125mg Tablet PO 02/08/24 19:31 1 each ONCE ONE Administration Benzocaine/Butamben/Tetracaine HCl 1 gm 02/08/24 19:20 02/08/24 19:28 Tetracaine/Benzocaine/Butamben 56 Gm [facility] TP 02/08/24 19:21 1 gm ONCE ONE Administration Ibuprofen 800 mg 02/08/24 19:20 02/08/24 19:28 Ibuprofen 800 Mg Tablet PO 02/08/24 19:21 800 mg ONCE ONE Administration Lidocaine HCl 15 ml 02/08/24 19:20 02/08/24 19:28 Lidocaine 2% Viscous Jyothi 15ml Udc PO 02/08/24 19:21 15 ml ONCE ONE Administration Medical Decision Narrative: In summary patient is a 43-year-old male who presents to the emergency department for evaluation of dentalgia. Patient is hemodynamically stable upon arrival, afebrile. Physical exam is remarkable for dental caries, patient has an eroded upper right second to last molar but there is no gingival swelling the buccal recess reveals no palpable masses or fluctuance no evidence of right periorbital cellulitis or facial swelling although the area is tender to palpation. He has no lymphadenopathy. Differential diagnosis includes dentalgia versus possible early infection. Initial workup was considered inc luding labs and imaging however patient has no red flags indicating that he has a deep space abscess thus are deferred. Initial interventions include dental balls and first dose of Augmentin. Given this patient is appropriate for discharge with recommendation is that he find a dentist to soon as possible with a prescription for Augmentin sent to his pharmacy and strict return precautions. I was consulted by the DANIEL, and we discussed the complexity of the problems being addressed.I approved the treatment and management plan for this patient?s care in the Emergency Department, thus performing a substantive portion of the medical decision making.Signed, Antoni Leger MD Critical Care <YULISSA Patel - Last Filed: 02/08/24 20:48> Critical Care Time Critical Care Time: No
[2024-02-08] MEDS: IBUPROFEN 800 MG TABLET PO (19:28)
[2024-02-08] MEDS: LIDOCAINE 2% VISCOUS SOL 15ML UDC 15 ML PO (19:28)
[2024-02-08] MEDS: TETRACAINE/BENZOCAINE/BUTAMBEN 56 GM SPRAY TP (19:28)
[2024-02-08] MEDS: ACETAMINOPHEN 500MG TAB 1000 MG PO (19:28)
[2024-02-08] MEDS: AMOXICILLIN/CLAVULANATE POTASSIUM 875/125MG TABLET 1 EACH PO (19:32)
[2024-02-08 19:37] VITALS: BP 146/97; PULSE 72; RESP 20; TEMP 37; O2SAT 97
== END 2024-02-08 19:37 | disposition home or self-care (01) ==
PROVIDERS: Emergency Provider Emergency Medicine; PCP Internal Medicine Adolescent Medicine
DX: K02.9 Dental caries, unspecified (principal); K08.89 Other specified disorders of teeth and supporting structures
CPT/HCPCS: 99283

== ENCOUNTER 2024-04-08 23:08 | Emergency (ER) | payer OTHER, SELFPAY ==
[2024-04-08 23:16] VITALS: BP 150/90; PULSE 75; RESP 20; TEMP 36.8; O2SAT 97; BMI 31.5
[2024-04-09 00:23] VITALS: BP 000/00; PULSE 0; RESP 0; TEMP -17.7; TEMP 0; O2SAT 0
== END 2024-04-09 00:25 | disposition left against medical advice (07) ==
LOC: ER 23:18
PROVIDERS: Emergency Provider Emergency Medicine; PCP Internal Medicine Adolescent Medicine
DX: Z53.21 Procedure and treatment not carried out due to patient leaving prior to being seen by health care provider (principal)

== ENCOUNTER 2024-12-04 09:24 | Emergency (ER) | payer OTHER, SELFPAY ==
[2024-12-04 09:25] VITALS: BP 125/68; PULSE 60; RESP 16; TEMP 36.8; O2SAT 98; BMI 28.5
[2024-12-04 10:02] VITALS: BP 122/66; PULSE 62; RESP 18; TEMP 36.8; O2SAT 99
--- NOTE | 2024-12-04 10:05 | HMH.EDGENADL ---
Discharge Plan Disposition Patient Disposition: Home, Self-Care Prescriptions Prescriptions: No Action amoxicillin-pot clavulanate 875-125 mg tablet 1 tab PO BID Qty: 20 0RF prednisone 20 mg tablet 40 mg PO BID 5 Days Qty: 20 0RF Referrals Follow up/Referrals: Lalo Worrell MD [Primary Care Provider, Internal Medicine] - See instructions Activity Restrictions/Add. Instructions Additional Instructions/Restrictions: You were seen in the emergency department for a viral respiratory infection. Please take Tylenol or Motrin for fever, please take sertraline or Benadryl for congestion, please hydrate well. If symptoms worsen, new symptoms develop, please return to the emergency department Clinical Impressions Clinical Impression: Upper respiratory infection Stand Alone Forms Stand Alone Forms: Work/School Release Instructions Patient Instructions: DI for Viral Upper Respiratory Infection -- Adult Print Language Print Language: Ghanaian Discharge ED Provider: Guillermo Loo General Adult HPI General Chief complaint: Upper Respiratory Infection Stated complaint: congestion, B/A, cough Time Seen by Provider: 12/04/24 09:28 Mode of Arrival: Ambulatory Source of Information: Patient Description of Symptoms (Recalled from ER Triage Doc. by RN): PT REPORTS COUGH, RUNNY NOSE, CONGESTION AND WATERY EYES THAT STARTED YESTERDAY. PT DENIES FEVER. WITH SAME SYMPTOMS History of Present Illness HPI narrative: This patient presents to the emergency department with 24 hours of congestion, cough, mild symptomatic fever. Patient reports that symptoms started after seeing a family member who is also sick. Primary symptoms include congestion, runny nose, cough. In the emergency department today the patient is hemodynamically stable, comfortable, not febrile. This patient has no history of immunosuppression, serious cardiac or pulmonary pathology. Related Data Previous Rx's ?Medication ?Instructions ?Recorded prednisone 20 mg tablet 40 mg (2 x 20 mg) PO BID 5 days 02/04/23 #20 tabs amoxicillin 875 mg-potassium 1 tab PO BID #20 tabs 02/08/24 clavulanate 125 mg tablet Allergies Allergy/AdvReac Type Severity Reaction Status Date / Time GRAPE FLAVORING Allergy Mild Uncoded 06/25/22 13:52 [employer] Allergy Uncoded 06/25/22 13:52 [facility] Disclaimer: The information contained in this section may have been updated after the patient was seen, as this information can be updated by other users. Medical History Allergies Asthma Bradycardia Bronchitis Depression with anxiety Fainting episodes Heart murmur History of gastroesophageal reflux (GERD) Insomnia Migraine Surgical History History of excision of pilonidal cyst No significant past surgical history Family History Mother Colon cancer Simon syndrome Father Hyperlipidemia Pre-diabetes Hypertension Other Cancer Social History Smoking Status: Current every day smoker tobacco type: cigarettes packs per day: 1 years smoked: 6 second hand exposure: Yes alcohol intake: never substance use type: marijuana current occupational status: unemployed Travel in the last 8 weeks?: None household members: spouse housing: apartment current occupational exposures/hazards: No caffeine: Yes Have you lived/traveled outside [place] in past 30 days?: No Contact w/someone who lives/traveled outside [place] past 30 days?: No Exposure to someone with infectious disease in past 14 days?: No Do you have a fever (greater than 100.4 F or 38 C)?: No Have you tested positive for COVID-19?: No Exposed to someone with COVID-19 in past 14 days?: No Do you have a sore throat?: No Do you have a cough?: No Do you have any weakness?: No Do you have any diarrhea?: No Are you experiencing any unusual bleeding?: No Do you have any muscle aches/pain?: No Do you have any abdominal pain?: No Are you experiencing loss of taste or smell?: No Other Medical History Have you received the Flu Vaccine for this season: No Have you received the Pneumonia Vaccine: No ROS Obtained: Yes All systems reviewed & no additional complaints except as documented Physical Exam General General appearance: alert and in no apparent distress Head Head exam: atraumatic and normocephalic Eye Eye exam: Present normal appearance, PERRL and EOMI ENT ENT exam: Present normal exam and normal external ear exam Neck Neck exam: Present normal inspection, full ROM and trachea midline Chest Chest inspection: Present normal inspection and symmetric chest wall rise; Absent tenderness Respiratory Respiratory exam: Absent respiratory distress Cardiovascular Cardiovascular exam: Present regular rate, normal rhythm and other (appears warm and well perfused) Abdominal Exam Abdominal exam: Absent distention or tenderness exam: Absent deferred Extremities Exam Extremities exam: Present normal inspection and full ROM Neurological Exam Neurological exam: Present alert and oriented X3 Psychiatric Psychiatric exam: Present normal affect Skin Skin exam: Present warm and dry Medical Decision Making Medical Records Medical records reviewed: Yes I reviewed the patient's medical records. Screening: Per USPSTF and CDC recommendations, given the prevalence of disease in our region, it is our hospital?s policy to screen for HIV and viral Hepatitis for all patients aged 18 and over and those with ongoing risk factors. Sander Inquiry Pt receiving controlled substance: No Sander was queried for this patient: No Vital Signs: 12/04/24 09:25 12/04/24 10:02 Temperature 98.2 F 98.2 F Temperature Source Oral Oral Pulse Rate 62 Pulse Rate [Radial] 60 Respiratory Rate 16 18 Blood Pressure 122/66 Blood Pressure [Right Arm] 125/68 Blood Pressure Mean [Right Arm] 87 Blood Pressure Source Automatic Cuff Blood Pressure Source [Right Arm] Automatic Cuff Blood Pressure Position Sitting Blood Pressure Position [Right Arm] Sitting 02 Sat by Pulse Oximetry 98 Oxygen Delivery Method Room Air Room Air Lab Data Lab results reviewed: Yes I reviewed the patient's lab results. Medical Decision Narrative: MDM In summary, this 24-year-old male presents to the emergency department today with cough, congestion, malaise. Initial evaluation the patient hemodynamically stable, afebrile. Differential diagnosis includes but is not limited to flu, COVID, pneumonia, RSV. On my initial exam the patient is extremely well-appearing. Given clinical history and physical exam I think it is most likely the patient has an unspecified upper respiratory tract infection that is most likely a viral in etiology. Patient has no risk factors for serious pulmonary complications like COPD or asthma. They have clear breath sounds bilaterally and so I think the likelihood of large consolidative process is unlikely. At this point I feel comfortable with discharged home with plans for conservative management. I provided him with instructions for medication dosing and careful return precautions. The patient verbalized understanding of these precautions. Critical Care Critical Care Time Critical Care Time: No
== END 2024-12-04 10:02 | disposition home or self-care (01) ==
PROVIDERS: Emergency Provider Student in an Organized Health Care Education/Training Program; PCP Internal Medicine Adolescent Medicine
DX: R09.81 Nasal congestion (principal); J06.9 Acute upper respiratory infection, unspecified; F17.210 Nicotine dependence, cigarettes, uncomplicated
CPT/HCPCS: 99282; 99283